=== PATIENT | female | born 1955 | race Caucasian/White ===

== ENCOUNTER 2018-05-14 05:45 | Inpatient (IN) ==
--- NOTE | 2017-12-13 10:06 | Anesthesiology Consultation ---
Date of Service December 13, 2017 Assessment & Plan (1) Encounter for pre-operative examination: Plan: - Check BSG AM DOS. - Cardio= 12/18/17= "acceptable risk for planned surgery. Recommend she hold the Eliquis for at least 3 days preoperatively." Chart Review Chart Review: Optimized for Surgery Teaching & Discussion Pre-Anesthesia Teaching/Discussion Notes: Instructed NPO after midnight before surgery,except medications with 15 cc of water. Medication instructions provided according to the PAT guidelines. History Surgery Operation Date: 01/01/18 07:30 Proposed Procedures p L4-L5, L5-S1 Removal & Replace Implants; L2-L3, L3-L4 Curvature Correction and Fusion; Removal Bone Stimulator - Graham Whalen, Height/Weight Height: 5 ft 2 in Weight: 89.5 kg Allergies Allergy/AdvReac Type Severity Reaction Status Date / Time Sulfa (Sulfonamide Allergy Unknown UNKNOWN Verified 12/11/17 09:17 Antibiotics) gabapentin AdvReac Intermediate GI Verified 12/11/17 09:17 SYMPTOMS, Disoriented valdecoxib AdvReac Intermediate RASH Verified 12/11/17 09:17 venlafaxine AdvReac Unknown GI UPSET Verified 12/11/17 09:17 Medications Home Medications Medication Instructions Recorded Confirmed Last Taken apixaban [Eliquis] 5 mg PO BID 12/11/17 12/11/17 Unknown calcium carbonate [Calcium 600] 1,200 mg PO DAILY 12/11/17 12/11/17 Unknown calcium polycarbophil [Fiber-Tabs] 1,250 mg PO DAILY 12/11/17 12/11/17 Unknown cetirizine [Zyrtec] 10 mg PO DAILY 12/11/17 12/11/17 Unknown cholecalciferol (vitamin D3) 1,000 unit PO DAILY 12/11/17 12/11/17 Unknown [Vitamin D3] desvenlafaxine succinate [Pristiq] 100 mg PO QAM 12/11/17 12/11/17 Unknown flecainide 50 mg PO Q12H 12/11/17 12/11/17 Unknown furosemide [Lasix] 20 mg PO DAILY PRN 12/11/17 12/11/17 Unknown lisinopril 10 mg PO DAILY 12/11/17 12/11/17 Unknown lorazepam [Ativan] 1 mg PO BID PRN 12/11/17 12/11/17 Unknown metformin 500 mg PO BID 12/11/17 12/11/17 Unknown metoprolol succinate [Toprol XL] 50 mg PO DAILY 12/11/17 12/11/17 Unknown naloxegol [Movantik] 25 mg PO QAM 12/11/17 12/11/17 Unknown pantoprazole [Protonix] 40 mg PO DAILY PRN 12/11/17 12/11/17 Unknown polyethylene glycol 3350 [Miralax] 1 dose PO DAILY PRN 12/11/17 12/11/17 Unknown potassium chloride 20 meq PO DAILY PRN 12/11/17 12/11/17 Unknown ropinirole [Requip] 1 mg PO HS 12/11/17 12/11/17 Unknown tizanidine 4 mg PO TID PRN 12/11/17 12/11/17 Unknown Past Medical History Medical History Anxiety Atrial fibrillation PAROXYSMAL Chronic back pain Constipation Degenerative disc disease Depression Diabetes mellitus, type 2 NIDDM GERD (gastroesophageal reflux disease) CONTROLLED Hyperlipidemia Hypertension Obesity Osteoarthritis Poor historian Post laminectomy syndrome Presence of intrathecal pump DILAUDID RLS (restless legs syndrome) Past Surgical History Surgical History Fusion of spine LUMBAR FUSION CERVICAL FUSION H/O right knee surgery History of bilateral tubal ligation History of carpal tunnel release of both wrists History of laminectomy Hx of cholecystectomy S/P foot surgery, right S/P insertion of intrathecal pump 08/17/14= LMA #4 AT [facility] Anesthesia Complications Comment: Patient denies personal or family history of issues with anesthesia. Social History Smoking Status: Former smoker Smoking End Date: QUIT 2004 Hx Alcohol Use: Yes Alcohol type: beer alcohol intake frequency: holidays/special occasions only Hx Substance Use: No Exercise / Class Metabolic Activity III < 4 Walking/Shop/Light housework Review of Systems Patient reports LBP with B/L LE radiculopathy/neuropathy. Patient denies chest pain, shortness of breath, dyspnea on exertion, wheezing, palpitations. Physical Exam Vital Signs VITALS BP 104/70 P 81 TEMP 97.8 RESP 16 SP02 97%RA Full neck and c-spine range of motion. Short thick neck. Full TMJ range of motion. TMD 3 finger breaths Mallampati Score 2 Dentition: multiple chipped "all over" Lungs: clear throughout to auscultation Cardiac: regular rate and rhythm, no murmurs noted Spine: normal Carotid arteries: negative bruit Extremities: no edema Testing Laboratory Results 12/13/17 10:17 12/13/17 10:17 Blood Type O Positive 12/13/17 10:17 Antibody Screen NEGATIVE 12/13/17 10:17 PT 10.0 Seconds (9.0-12.0) 12/13/17 10:17 INR 1.0 (0.9-1.1) 12/13/17 10:17 APTT 27.0 Seconds (21.0-31.0) 12/13/17 10:17 Hemoglobin A1c 7.5 % (4.5-5.6) H 12/13/17 10:17 Electrocardiogram Date: 08/18/17 Findings: + SB @ (48) Chest X-Ray Date: 12/13/17 Findings: + NAD Intrathecal catheter is partially imaged as well. Echocardiogram Date: 12/03/17 LVEF 65-70%. Mild cLVH. Mild LAD/RAD. RVSP 42.0 mmhg.
--- NOTE | 2017-12-13 10:15 | PAT Medication Instructions ---
Medication Instructions Date of Service December 13, 2017 Home Medications apixaban [Eliquis] 5 mg PO BID calcium carbonate [Calcium 600] 1,200 mg PO DAILY calcium polycarbophil [Fiber-Tabs] cetirizine [Zyrtec] 10 mg PO DAILY cholecalciferol (vitamin D3) 1,000 unit PO DAILY desvenlafaxine succinate [Pristiq] 100 mg PO QAM flecainide 50 mg PO Q12H furosemide [Lasix] 20 mg PO DAILY PRN lisinopril 10 mg PO QAM lorazepam [Ativan] 1 mg PO BID PRN metformin 500 mg PO BID metoprolol succinate [Toprol XL] 50 mg PO DAILY naloxegol [Movantik] 25 mg PO QAM pantoprazole [Protonix 40 mg PO DAILY PRN polyethylene glycol 3350 [Miralax] 1 dose PO DAILY PRN potassium chloride 20 meq PO DAILY PRN ropinirole [Requip] 1 mg PO HS tizanidine 4 mg PO TID PRN Check with MD/Surgeon-instructions apixaban [Eliquis] 5 mg PO BID Hold 24 hours prior to surgery ropinirole [Requip] 1 mg PO HS Hold the morning of surgery cetirizine [Zyrtec] 10 mg PO DAILY furosemide [Lasix] 20 mg PO DAILY PRN lisinopril 10 mg PO QAM metformin 500 mg PO BID naloxegol [Movantik] 25 mg PO QAM polyethylene glycol 3350 [Miralax] 1 dose PO DAILY PRN potassium chloride 20 meq PO DAILY PRN tizanidine 4 mg PO TID PRN Take morning of surgery Take the following medication the morning of surgery with a sip of water, OTHERWISE NOTHING TO EAT OR DRINK AFTER MIDNIGHT: desvenlafaxine succinate [Pristiq] 100 mg PO QAM flecainide 50 mg PO Q12H lorazepam [Ativan] 1 mg PO BID PRN (if needed) metoprolol succinate [Toprol XL] 50 mg PO DAILY pantoprazole [Protonix 40 mg PO DAILY PRN (if needed) Take evening before surgery calcium carbonate [Calcium 600] 1,200 mg PO DAILY calcium polycarbophil [Fiber-Tabs] cholecalciferol (vitamin D3) 1,000 unit PO DAILY flecainide 50 mg PO Q12H lorazepam [Ativan] 1 mg PO BID PRN (if needed) metformin 500 mg PO BID pantoprazole [Protonix 40 mg PO DAILY PRN (if needed) polyethylene glycol 3350 [Miralax] 1 dose PO DAILY PRN (if needed) potassium chloride 20 meq PO DAILY PRN (if needed) tizanidine 4 mg PO TID PRN (if needed) Other Notes If you have any questions please call us at [phone] or [phone] or [phone] or [phone]
--- NOTE | 2017-12-13 10:35 | XRay Report ---
XR chest Pre-admission PA/Lat CLINICAL HISTORY: Preoperative evaluation. COMPARISON STUDY: No previous studies for comparison. FINDINGS: Anterior cervical spine fusion is partially imaged. Intrathecal catheter is partially image d as well. Lung volumes are normal. No pneumothorax or pleural effusion is noted. Lungs are clear. Ca rdiac size is normal. Mediastinal contours are normal. IMPRESSION: No acute cardiopulmonary findings. Electronically signed by: Rogerio Toledo M.D. 12/13/2017 10:34 AM
[2017-12-13 11:18] LABS: Basophils # (auto) 0.01 K/uL (0-0.2); Basophils % (auto) 0.2 %; Eosinophils # (auto) 0.25 K/uL (0-0.5); Eosinophils % (auto) 4.9 %; Hematocrit (blood only) 43.5 % (37-47); Hemoglobin 14.4 g/dL (12.0-16.0); Immature Granulocytes # (auto) 0.01 K/uL (0.00-0.02); Immature Granulocytes % (auto) 0.2 %; Lymphocytes # (auto) 1.86 K/uL (1.2-3.4); Lymphocytes % (auto) 36.1 %; Mean Corpuscular Hgb Conc 33.1 g/dL (32-36); Mean Corpuscular Volume 92.2 fL (80-100); Monocytes # (auto) 0.34 K/uL (0.11-0.59); Monocytes % (auto) 6.6 %; Neutrophils # (auto) 2.68 K/uL (1.4-6.5); Platelet Count 219 K/uL (130-400); RDW Standard Deviation 47.2 fL (36.4-46.3); Red Blood Count 4.72 M/uL (4.2-5.4); White Blood Count 5.15 K/uL (4.8-10.8)
[2017-12-13 11:26] LABS: BUN Creatinine Ratio 17.9 (10-20); Creatinine Clr Calc Pharmacy 90.5 ml/min; Est GFR (African American) 109.2; Est GFR (Non-African American) 94.2; Potassium 4.6 mmol/L (3.5-5.1)
[2017-12-13 12:05] LABS: Estimated Average Glucose 169 mg/dl
--- NOTE | 2018-05-11 20:17 | History and Physical Report ---
DATE OF ADMISSION: 05/14/2018 CHIEF COMPLAINT: Back pain, lower extremity difficulty, paresthesias, and inability to ambulate and get upright. She is being scheduled for elective lumbar spinal surgery. PAST MEDICAL HISTORY: Usual childhood diseases, scarlet fever, hypertension, diabetes arrhythmias. PAST SURGICAL HISTORY: Includes old prior surgery in the lumbar spine, carpal tunnel surgery, cholecystectomy, C-spine surgery. ALLERGIES: BEXTRA, NEURONTIN. FAMILY HISTORY: Heart disease, diabetes. SOCIAL HISTORY: She is , rarely drinks. Three grown children. Little activity secondary to pain. REVIEW OF SYSTEMS: Positive for fatigue and headaches, sinus issues. Admits to occasional palpitations. No asthma, wheezing. No nausea, vomiting, urgency, frequency. No dysuria, no bowel and bladder incontinence. Her major complaint is of lower extremity, difficulty, paresthesias, numbness and tingling, inability to ambulate and come upright. MEDICATIONS: Metformin, lorazepam, furosemide, vitamin D, tramadol, Vasotec. OBJECTIVE: GENERAL: She is alert, oriented. She is 5 feet 2 inches, 213 pounds, in distress. VITAL SIGNS: Blood pressure 130/80, pulse 80, respiration 16. HEENT: Essentially normal. CARDIAC: Normal S1, S2, no S3. LUNGS: Clear to auscultation. No rales, rhonchi, or wheezing. ABDOMEN: Soft, nontender, bowel sounds present. EXTREMITIES: Intact. She has weakness of dorsiflexion, plantarflexion, blunted reflexes, and difficulty coming upright. IMAGES: Images demonstrated a fairly complex spinal scoliosis and deformity of the spine. PLAN: Includes removal and replace implants, lumbar spine L4-5, L5-S1; correction of her curvature and fusion, L2-3, L3-4, and removal of bone stimulator.
[~2018-05-14 05:45] MED LIST: CEFAZOLIN 2000MG 2,000 MG/15 ML SYR IV SCH; LACTATED RINGER'S 1,000 ML IV SCH; LR 15ML/HR IV SCH; LR 500ML BOLUS, THEN 15ML/HR IV SCH; SODIUM CHLORIDE 0.9% 1,000 ML IV SCH; SODIUM CHLORIDE 0.9% 1000ML IV SCH
[2018-05-14] MEDS ORDERED: SODIUM CHLORIDE 0.9% 1,000 ML IV SCH (06:00)
[2018-05-14] MEDS ORDERED: LR 15ML/HR IV SCH ×2 (06:00)
[2018-05-14] MEDS ORDERED: CEFAZOLIN 2000MG 2,000 MG/15 ML SYR IV SCH (06:00)
[2018-05-14] MEDS ORDERED: THROMBIN FOR SOLN 20000 UNIT KIT ONE (06:48)
[2018-05-14] MEDS ORDERED: GELATIN SPONGE SZ 100 ONE ×2 (06:48→09:30)
[2018-05-14] MEDS ORDERED: BACITRACIN INJ 50,000 UNIT VIAL ONE (06:48)
[2018-05-14] MEDS ORDERED: VANCOMYCIN HCL 1000MG/20ML VIAL ONE (06:48)
[2018-05-14] MEDS ORDERED: ePHEDrine sulfate 50 MG/ML AMP IV PRN (06:50)
[2018-05-14] MEDS ORDERED: HYDROmorphone INJ 2 MG/ML SYR/VIAL IV PRN (06:50)
[2018-05-14] MEDS ORDERED: ONDANSETRON INJ 2 MG/ML 2 ML VIAL IV PRN ×2 (06:50→11:16)
[2018-05-14] MEDS ORDERED: fentaNYL citrate 100 MCG/2 ML VIAL IV PRN (06:50)
[2018-05-14] MEDS ORDERED: ATROPINE SULFATE 0.1 MG/ML 10ML SYR IV PRN (06:50)
[2018-05-14] MEDS ORDERED: BUPIVACAINE/EPINEPHRINE 0.5% MPF 1:200,000 30 ML VIAL ONE (06:51)
[2018-05-14] MEDS ORDERED: fentaNYL citrate 100 MCG/2 ML VIAL ONE (07:08)
[2018-05-14] MEDS ORDERED: MIDAZOLAM HCL 1 MG/ML 2ML VIAL ONE (07:08)
--- NOTE | 2018-05-14 07:17 | History & Physical Bridge Note ---
Date of Service May 14, 2018 History & Physical Bridge Note I have examined the patient, reviewed the History & Physical and in the interval since the performance of the History & Physical I have noted the following changes of clinical significance: no changes noted
[2018-05-14] MEDS ORDERED: ePHEDrine sulfate 50 MG/ML SYR ONE (08:16)
[2018-05-14] MEDS ORDERED: DEXAMETHASONE SOD INJ 4 MG/ML VIAL ONE (08:16)
[2018-05-14] MEDS ORDERED: LARYING-O-JET KIT (LTA) ONE (08:16)
[2018-05-14] MEDS ORDERED: ONDANSETRON INJ 2 MG/ML 2 ML VIAL ONE (08:16)
[2018-05-14] MEDS ORDERED: ROCURONIUM BROMIDE 10 MG/ML 5 ML VIAL ONE (08:16)
[2018-05-14] MEDS ORDERED: HYDROmorphone INJ 2 MG/ML SYR/VIAL ONE (08:16)
[2018-05-14] MEDS ORDERED: LIDOCAINE HCL 2% 2 ML VIAL/AMP(20MG/ML) INFIL ONE (08:16)
[2018-05-14] MEDS ORDERED: GLYCOPYRROLATE 0.2 MG/ML VIAL ONE (08:16)
[2018-05-14] MEDS ORDERED: PROPOFOL IV EMULSION 10 MG/ML 20 ML VIAL IV ONE (08:16)
[2018-05-14] MEDS ORDERED: NEOSTIGMINE METHYLSULFATE 5 MG/5 ML SYR ONE (08:16)
[2018-05-14] MEDS ORDERED: FLOSEAL HEMOSTATIC MATRIX 10ML TOP ONE (08:55)
--- NOTE | 2018-05-14 10:15 | Post Operative Brief Note ---
Immediate Post Op Note v1 Date of Surgery May 14, 2018 Pre & Post Diagnosis Operation Date: 05/14/18 07:30 Pre-Op Diagnosis: Scoliosis, Spinal Stenosis, Failed Implants Post-Op Diagnosis: Scoliosis, Spinal Stenosis, Failed Implants Procedure Operation Date: 05/14/18 07:30 Actual Procedures p Laminectomy L2-L4, Removal of Bone Stimulator, Partial Removal of Implants( Not Applicable) - Graham Whalen DO Surgeon Graham Whalen DO Food Service Attendant breanna Estimated Blood Loss 300 Findings Consistent with Post-Op Diagnosis Drains Lawson Catheter and Hemovac Drain
--- NOTE | 2018-05-14 11:03 | Anesthesiology Progress Note ---
Date of Service May 14, 2018 Anesthesia Post Procedure Vital Signs Vital Signs: Temp Pulse Pulse Resp BP BP Pulse Ox 05/14/18 10:55 97.0 F L 43 L 15 142/82 H 100 05/14/18 10:45 46 L 14 146/82 H 100 05/14/18 10:35 45 L 14 154/79 H 100 05/14/18 10:25 45 L 15 146/79 H 99 05/14/18 10:18 97.0 F L 47 L 14 171/80 H 99 05/14/18 06:24 97.7 F 48 L 18 145/88 H 95 Pain Intensity Back: Pain Intensity: 3 Notes Mental Status: alert / awake / arousable and participated in evaluation Patient Amnestic to Procedure: Yes Nausea / Vomiting: adequately controlled Pain: adequately controlled Airway Patency, RR, SpO2: stable & adequate BP & HR: stable & adequate Hydration State: stable & adequate Anesthetic Complications: no major complications apparent and Pt Satisfied with anesthetic care
[2018-05-14] MEDS ORDERED: PANTOprazole 40 MG TAB PO PRN (11:16)
[2018-05-14] MEDS ORDERED: POLYETHYLENE (MIRALAX) 17 GM PACK PO PRN (11:16)
[2018-05-14] MEDS ORDERED: MAGNESIUM HYDROXIDE SUSP 30 ML UDC PO PRN (11:16)
[2018-05-14] MEDS ORDERED: FUROSEMIDE 20 MG TAB PO PRN (11:16)
[2018-05-14] MEDS ORDERED: HYDROmorphone INJ 1 MG/ML SYRINGE IV PRN (11:16)
[2018-05-14] MEDS ORDERED: CETIRIZINE HCL 10 MG TABLET PO PRN (11:30)
[2018-05-14] MEDS: HYDROmorphone INJ 1 MG/ML SYRINGE IV PRN ×2 (11:30→16:23)
[2018-05-14] MEDS ORDERED: POTASSIUM CHLORIDE 20 MEQ TABCR PO PRN (11:30)
[2018-05-14] MEDS ORDERED: TIZANIDINE HCL 4 MG TABLET PO PRN (11:45)
[2018-05-14] MEDS: SODIUM CHLORIDE 0.9% 1000ML 1,000 ML IV SCH ×2 (12:11→22:26)
[2018-05-14] MEDS: FLECAINIDE ACETATE 100 MG TABLET PO SCH ×2 (12:11→21:22)
[2018-05-14] MEDS: OXYCODONE HCL IR 5 MG TAB (IMMEDIATE RELEASE) PO PRN ×2 (12:14→21:25)
[2018-05-14] MEDS: ACETAMINOPHEN 1,000 MG/100 ML VIAL IV SCH ×2 (13:16→22:27)
[2018-05-14 13:25] LABS: Albumin Level 3.6 gm/dl (3.4-5.0); Bilirubin Direct 0.1 mg/dl (0-0.2); Bilirubin,Total 0.4 mg/dl (0.2-1); Total Protein 6.5 gm/dl (6.4-8.2)
[2018-05-14] MEDS: CEFAZOLIN 2000MG 2,000 MG/15 ML SYR IV SCH ×2 (14:41→22:17)
[2018-05-14] MEDS: ROPINIROLE HCL 1 MG TABLET PO SCH ×2 (16:23→22:24)
[2018-05-14] MEDS: METFORMIN HCL 500 MG TAB PO SCH (17:35)
[2018-05-14] MEDS ORDERED: ROPINIROLE HCL 1 MG TABLET PO SCH (21:00)
[2018-05-14] MEDS: APIXABAN 5 MG TABLET PO SCH (21:21)
[2018-05-14] MEDS: AMITRIPTYLINE HCL 10 MG TAB PO SCH (21:21)
[2018-05-14] MEDS: DOCUSATE SODIUM 100 MG CAP PO SCH (21:21)
--- NOTE | 2018-05-14 21:29 | Operative Report ---
REVISED REPORT DATE OF OPERATION: 05/14/2018 PREOPERATIVE DIAGNOSES: 1. Degenerative scoliosis of the spine. 2. Spinal stenosis. 3. Instability. POSTOPERATIVE DIAGNOSES: 1. Spinal stenosis, lumbar spine. 2. No instability. PROCEDURES: 1. Posterior lumbar decompression L2, L3, L4, a 3-level laminectomy, foraminotomy, partial facetectomy. 2. We also removed the prior spinal implant bone stimulator and pain pump. SURGEON: Graham Whalen DO GENERAL SCRAP WORKER: Jamie Gasca PA-C. COMPLICATIONS: None. DESCRIPTION OF PROCEDURE: The patient was taken to the operating room and general intubated anesthetic provided to the patient, placed prone, prepped and draped sterile. Made a skin incision and fascial incision. We dissected from L2 down to the sacrum, dissecting the soft tissue in the same plane. We first worked on the old implants. We were unsuccessful in getting out the old implants. I then evaluated the spine, realized that she is relatively stable. I felt no gross instability. My reasoning was that she needed no more implants placed and that would not help her. Her spine was quite rigid and stable. We decompressed the stenosed areas, L2, L3, and L4. I was very pleased with that decompression. We took out the old spinal implant, which was a pain pump, nerve stimulator, assortment of wires. We then irrigated and debrided and closed in [id number] fashion, fascia. Fascia closed with 1 Vicryl suture, 2-0 subcuticular layer, 3-0 nylon skin, sterile dressings applied. The patient returned to PACU stable. No apparent intraoperative complications. I attest to the content of the Intraoperative Record and any orders documented therein. Any exceptions are noted below. MTDD
[2018-05-14] MEDS: LORazepam 1 MG TAB PO PRN (21:52)
[2018-05-15] MEDS: OXYCODONE HCL IR 5 MG TAB (IMMEDIATE RELEASE) PO PRN ×5 (02:47→20:39)
[2018-05-15] MEDS: ACETAMINOPHEN 1,000 MG/100 ML VIAL IV SCH ×3 (06:20→22:26)
[2018-05-15] MEDS: CEFAZOLIN 2000MG 2,000 MG/15 ML SYR IV SCH (06:20)
--- NOTE | 2018-05-15 08:20 | Anesthesiology Progress Note ---
Date of Service May 15, 2018 Anesthesia Post Procedure Vital Signs Vital Signs: Temp Pulse Pulse Resp BP Pulse Ox 05/15/18 07:12 36.5 C 51 L 18 108/65 92 05/15/18 03:15 36.4 C L 52 L 16 114/70 93 05/14/18 23:04 36.5 C 51 L 16 101/60 91 05/14/18 19:00 36.6 C 50 L 20 93 05/14/18 15:15 36.7 C 50 L 18 118/77 99 05/14/18 13:57 49 L 18 115/75 94 05/14/18 12:52 50 L 18 114/75 97 05/14/18 12:04 36.3 C L 48 L 16 101/69 94 05/14/18 11:34 36.3 C L 46 L 18 108/69 92 05/14/18 11:00 36.3 C L 45 L 16 125/76 91 05/14/18 10:55 36.1 C L 43 L 15 142/82 H 100 05/14/18 10:45 46 L 14 146/82 H 100 05/14/18 10:35 45 L 14 154/79 H 100 05/14/18 10:25 45 L 15 146/79 H 99 05/14/18 10:18 36.1 C L 47 L 14 171/80 H 99 Pain Intensity Back: Pain Intensity: 7 Notes Mental Status: alert / awake / arousable and participated in evaluation Nausea / Vomiting: adequately controlled Pain: adequately controlled Airway Patency, RR, SpO2: stable & adequate BP & HR: stable & adequate Hydration State: stable & adequate Anesthetic Complications: no major complications apparent
[2018-05-15] MEDS: METFORMIN HCL 500 MG TAB PO SCH ×2 (08:28→18:05)
[2018-05-15] MEDS: APIXABAN 5 MG TABLET PO SCH ×2 (08:28→20:41)
[2018-05-15] MEDS: DOCUSATE SODIUM 100 MG CAP PO SCH ×2 (08:28→20:42)
[2018-05-15] MEDS: FLECAINIDE ACETATE 100 MG TABLET PO SCH ×2 (08:29→20:40)
[2018-05-15] MEDS: CALCIUM POLYCARBOPHIL 1 TAB PO SCH (08:31)
[2018-05-15] MEDS: ROPINIROLE HCL 1 MG TABLET PO SCH ×2 (08:32→20:42)
[2018-05-15] MEDS: LISINOPRIL 10 MG TAB PO SCH (08:33)
[2018-05-15] MEDS: FLUTICASONE PROPIONATE NA SPR 16 GM BTL SCH (08:33)
[2018-05-15] MEDS: METOPROLOL SUCC 50MG EXT REL TAB PO SCH (08:33)
--- NOTE | 2018-05-15 14:25 | Hospitalist Consultation ---
Date of Consultation May 15, 2018 Assessment & Plan (1) Degenerative disc disease, cervical: (2) Chronic lumbar pain: (3) Obesity: (4) RLS (restless legs syndrome): (5) Atrial fibrillation: (6) Hyperlipidemia: (7) Hypertension: (8) Anxiety: (9) Depression: (10) Diabetes mellitus, type 2: (11) GERD (gastroesophageal reflux disease): History of Present Illness Reason for Consultation: Medical manaement Requesting Physician: Dr. Ross Attending Physician: Graham Whalen DO History of Present Illness 62-year-old white female with a significant past medical history of chronic lumbar pain, restless leg syndrome, A. fib, dyslipidemia hypertension, anxiety, depression type II diabetic GERD, was admitted to orthopedic service because of lower back pain. Patient have his procedure done in May 14, 2018, per report in the preop diagnosis is spinal stenosis., POSTOPERATIVE DIAGNOSES: 1. Spinal stenosis, lumbar spine. PROCEDURES: 1. Posterior lumbar decompression L3, L4, L5, a 3- level laminectomy, foraminotomy, partial facetectomy, removed the prior spinal implant bone stimulator and pain pump. When I see patient she reported doing good, only mild achy pain, has been sitting up to the chair, no other complaint, Allergies Allergy/AdvReac Type Severity Reaction Status Date / Time Sulfa (Sulfonamide Allergy Unknown UNKNOWN Verified 05/10/18 08:27 Antibiotics) gabapentin AdvReac Intermediate GI Verified 05/10/18 08:27 SYMPTOMS, Disoriented valdecoxib AdvReac Intermediate RASH Verified 05/10/18 08:27 venlafaxine AdvReac Unknown GI UPSET Verified 05/10/18 08:27 Home Medications Home Medications Medication Instructions Recorded Confirmed Type apixaban [Eliquis] 5 mg PO BID 12/11/17 05/14/18 History calcium polycarbophil [Fiber-Tabs] 1,250 mg PO DAILY 12/11/17 05/14/18 History cetirizine [Zyrtec] 10 mg PO DAILY PRN 12/11/17 05/14/18 History desvenlafaxine succinate [Pristiq] 100 mg PO QAM 12/11/17 05/14/18 History flecainide 50 mg PO Q12H 12/11/17 05/10/18 History furosemide [Lasix] 20 mg PO DAILY PRN 12/11/17 05/14/18 History lisinopril 10 mg PO QAM 12/11/17 05/14/18 History lorazepam [Ativan] 1 mg PO BID PRN 12/11/17 05/14/18 History metformin 500 mg PO BID 12/11/17 05/10/18 History metoprolol succinate [Toprol XL] 50 mg PO QAM 12/11/17 05/14/18 History pantoprazole [Protonix] 40 mg PO DAILY PRN 12/11/17 05/14/18 History polyethylene glycol 3350 [Miralax] 1 dose PO DAILY PRN 12/11/17 05/14/18 History potassium chloride 20 meq PO DAILY PRN 12/11/17 05/14/18 History tizanidine 4 mg PO TID PRN 12/11/17 05/14/18 History tramadol 50 mg tablet 100 mg PO Q6H PRN tab 12/27/17 05/14/18 History amitriptyline 10 mg PO HS 03/28/18 05/14/18 History Dilaudid Pump 0.9 mg INTRATHECAL DAILY 05/10/18 History fluticasone 2 spray INTRANASAL QAM 05/10/18 05/14/18 History rk-qa-upbhzzt-biotin-vit D3-FA 3 tab PO HS 05/10/18 05/14/18 History [Biotin Plus-Calcium and Vit D3] ropinirole 2 mg PO HS 05/10/18 05/14/18 History hydrocodone-acetaminophen [Watson] 1 tab PO Q6H #40 tab 05/15/18 Rx Patient History Medical History Anxiety Atrial fibrillation PAROXYSMAL Chronic back pain Constipation Degenerative disc disease Depression Diabetes mellitus, type 2 NIDDM GERD (gastroesophageal reflux disease) CONTROLLED Hyperlipidemia Hypertension Obesity Osteoarthritis Poor historian Post laminectomy syndrome Presence of intrathecal pump DILAUDID RLS (restless legs syndrome) Surgical History Fusion of spine LUMBAR FUSION CERVICAL FUSION H/O right knee surgery History of bilateral tubal ligation History of carpal tunnel release of both wrists History of laminectomy Hx of cholecystectomy S/P foot surgery, right S/P insertion of intrathecal pump 08/17/14= LMA #4 AT [facility] Social History marital status: Unknown Current Living Situation: Alone current occupational status: retired Other Information That Helps Us Care for You: No Feels Safe at Home: Yes Safety Concerns: Feels Safe At This Time Smoking Status: Former smoker Tobacco Type: cigarettes Do You Dip or Chew Tobacco: No Smoking End Date: QUIT 14 YEARS AGO Second Hand Exposure: No Tobacco Cessation Education Requested by Patient: No Hx Alcohol Use: Yes (occassionally) Alcohol type: beer Alcohol Intake Frequency : holidays/special occasions only Hx Substance Use: No Beliefs That Will Affect Care: None Communication Ability: Effective Review of Systems Review of Systems Constitutional: mild weakness, or fatigue Respiratory: no cough, sputum, wheezing, or dyspnea on exertion Cardiac: No chest pain, No orthopnea, No PND, No claudication, No palpitations , Abdomen: No pain, No nausea, No vomiting, No diarrhea, No constipation, No GI bleeding Musculoskeletal: mild achy LBP, no other joint pain, No muscle pain, No swelling, No calf pain, No problem reported : No dysuria, No urinary frequency, No incontinence, No hematuria Neurologic: No paralysis, No weakness, No numbness/tingling, No vertigo, No balance problems Psychiatric: No depression symptoms, No anhedonism, No anxiety, No insomnia, No substance abuse Heme: No abnormal bleeding/bruising, No clotting problems, No swollen lymph nodes, No night sweats Skin: No rash, No itch, No new/changing skin lesions, No color change, No bleeding Physical Exam 2 Vital Signs (Past 24 Hours): Last Vital Signs Temp 36.6 C 05/15/18 11:13 Pulse 54 L 05/15/18 11:13 Resp 18 05/15/18 11:13 BP 108/65 05/15/18 11:13 Pulse Ox 93 05/15/18 11:13 Physical Exam: General Appearance: WD/WN, no apparent distress, pleasant, morbid obesity, Eyes: normal inspection, PERRL, EOMI, sclerae normal ENT: normal ENT inspection, hearing grossly normal, pharynx normal Neck: supple, no adenopathy, thyroid normal, no JVD, no carotid bruits, trachea midline Respiratory/Chest: chest non-tender, normal breath sounds, no respiratory distress, no accessory muscle use, breath sounds, rales, wheezing Cardiovascular: regular rate, rhythm, no JVD, no murmur Abdomen: normal bowel sounds, non tender, soft, no organomegaly, Extremities: No obvious edema, normal range of motion, non-tender, normal inspection, joint has no limited range of motion, capillary refill is normal, no cyanosis clubbing Neurologic/Psychiatric: sound technician II-XII nml as tested, no motor/sensory deficits, alert, normal mood/affect, oriented x 3 Skin: normal color, warm/dry, no rash Lymphatic: no adenopathy Results & Data Laboratory Results Laboratory Results - last 24 hr 05/14/18 05/14/18 05/15/18 17:16 20:29 08:30 POC Glucose 229 H 192 H 182 H 05/15/18 12:13 POC Glucose 195 H
[2018-05-15] MEDS: AMITRIPTYLINE HCL 10 MG TAB PO SCH (20:40)
[2018-05-16] MEDS ORDERED: SODIUM CHLORIDE 0.9% 1000ML 1,000 ML IV ONE (00:37)
[2018-05-16] MEDS: ACETAMINOPHEN 1,000 MG/100 ML VIAL IV SCH ×3 (05:41→22:10)
[2018-05-16] MEDS: OXYCODONE HCL IR 5 MG TAB (IMMEDIATE RELEASE) PO PRN ×4 (05:46→21:30)
[2018-05-16] MEDS ORDERED: BISACODYL 5 MG TABEC PO PRN (06:00)
[2018-05-16 06:45] LABS: Basophils # (auto) 0.01 K/uL (0-0.2); Basophils % (auto) 0.1 %; Eosinophils # (auto) 0.15 K/uL (0-0.5); Eosinophils % (auto) 2.1 %; Hematocrit (blood only) 29.7 % (37-47); Hemoglobin 9.9 g/dL (12.0-16.0); Immature Granulocytes # (auto) 0.02 K/uL (0.00-0.02); Immature Granulocytes % (auto) 0.3 %; Lymphocytes % (auto) 22.6 %; Mean Corpuscular Hgb Conc 33.3 g/dL (32-36); Mean Corpuscular Volume 97.4 fL (80-100); Monocytes # (auto) 0.65 K/uL (0.11-0.59); Monocytes % (auto) 9.2 %; Neutrophils # (auto) 4.66 K/uL (1.4-6.5); Neutrophils % (auto) 65.7 %; Platelet Count 154 K/uL (130-400); RDW Coefficient of Variation 13.4 % (11.5-14.5); RDW Standard Deviation 47.6 fL (36.4-46.3); Red Blood Count 3.05 M/uL (4.2-5.4); White Blood Count 7.09 K/uL (4.8-10.8)
[2018-05-16 06:51] LABS: INR 1.1 (0.9-1.1); Prothrombin Time 10.8 Seconds (9.0-12.0)
[2018-05-16 07:09] LABS: BUN Creatinine Ratio 23.4 (10-20); Calcium 7.7 mg/dl (8.5-10.1); Creatinine Clr Calc Pharmacy 101.5 ml/min; Est GFR (African American) 112.6; Est GFR (Non-African American) 97.2; Magnesium 1.6 mg/dl (1.8-2.4); Potassium 3.7 mmol/L (3.5-5.1)
[2018-05-16] MEDS: DOCUSATE SODIUM 100 MG CAP PO SCH ×2 (07:56→22:06)
[2018-05-16] MEDS: APIXABAN 5 MG TABLET PO SCH ×2 (07:56→22:07)
[2018-05-16] MEDS: CALCIUM POLYCARBOPHIL 1 TAB PO SCH (07:57)
[2018-05-16] MEDS: LISINOPRIL 10 MG TAB PO SCH (07:57)
[2018-05-16] MEDS: FLUTICASONE PROPIONATE NA SPR 16 GM BTL SCH (07:58)
[2018-05-16] MEDS: FLECAINIDE ACETATE 100 MG TABLET PO SCH ×2 (07:58→22:08)
[2018-05-16] MEDS: METFORMIN HCL 500 MG TAB PO SCH ×2 (07:59→15:56)
[2018-05-16] MEDS: METOPROLOL SUCC 50MG EXT REL TAB PO SCH ×2 (08:01→09:42)
[2018-05-16] MEDS ORDERED: MAGNESIUM SULFATE / D5W 1 GM/100 ML BAG IV ONE (08:30)
[2018-05-16] MEDS ORDERED: COUGH DROP (SUGAR FREE) LOZ 24 LOZ/1 BOX BUCCAL ONE (09:03)
[2018-05-16] MEDS: MAGNESIUM OXIDE 400 MG TAB PO SCH ×2 (09:41→22:07)
[2018-05-16] MEDS ORDERED: NURSING DECISION MEDICATION ONE (09:54)
[2018-05-16] MEDS ORDERED: COUGH DROP (SUGAR FREE) LOZ 24 LOZ/1 BOX BUCCAL PRN (10:01)
--- NOTE | 2018-05-16 11:20 | Discharge Summary ---
Ene is postop day #2 lumbar spine laminectomy, removal of pain pump. She is doing well, still has some lingering pain, some quadriceps pain, some surgical, some not. She has had an uneventful course. She is taking p.o. She is ambulatory. All vital signs stable. She is discharged home later today in improved stable condition. Prescription for [place] on her chart and a followup in 10-12 days.
[2018-05-16] MEDS: LORazepam 1 MG TAB PO PRN ×2 (11:26→22:17)
--- NOTE | 2018-05-16 15:34 | Hospitalist Progress Note ---
Date of Service May 16, 2018 Assessment & Plan (1) Degenerative disc disease, cervical: (2) Chronic lumbar pain: (3) Obesity: (4) RLS (restless legs syndrome): (5) Atrial fibrillation: (6) Hyperlipidemia: (7) Hypertension: (8) Anxiety: (9) Depression: (10) Diabetes mellitus, type 2: (11) GERD (gastroesophageal reflux disease): 62-year-old white female with a significant past medical history of chronic lumbar pain, restless leg syndrome, A. fib, dyslipidemia hypertension, anxiety, depression type II diabetic GERD, was admitted to orthopedic service because of lower back pain. Low back pain S/P procedure, this will be management by the primary team, others such as pain control PT OT DVT prophylaxis and discharge plan will be per primary team A. fib with rapid ventricular response, heart rate highest was up to 131, blood pressure was borderline low in 90s, unable to give metoprolol, after observation was able to give Metoprolol Patient's heart rate and blood pressure has been fluctuating a lot, I told RN to have close monitoring, and hold discharge if orthopedic surgeon agree restless leg syndrome, dyslipidemia hypertension, anxiety, depression , GERD, stable will continue current medication, type II diabetic: Continue home medication plus insulin sliding scale, diabetic diet, blood glucose q. before meals and at bedtime, Hospitalist will follow up Subjective Patient was feeling palpitation, come and goes, this morning Initially decreased and was not able to give oral medication for heart rate and blood pressure because HR was up to 120, blood pressure was insignificant borderline low at 90's After repeated, was able to give metoprolol Generally patient has no complaints Review of Systems Constitutional: negative weakness, or fatigue Respiratory: no cough, sputum, wheezing, or dyspnea on exertion Cardiac: No chest pain, No orthopnea, No PND, Abdomen: No pain, No nausea, No vomiting, No diarrhea, Musculoskeletal: No joint pain, No muscle pain, No swelling, No calf pain, No problem reported : No dysuria, No urinary frequency, Neurologic: No paralysis, No weakness, No numbness/tingling, No vertigo, No balance problems Psychiatric: No depression symptoms, No anhedonism, Heme: No abnormal bleeding/bruising, No clotting problems, Skin: No rash, No itch, No new/changing skin lesions, No color change, No bleeding Physical Exam 2 Vital Signs (Past 24 Hours): Last Vital Signs Temp 36.6 C 05/16/18 15:18 Pulse 117 H 05/16/18 15:18 Resp 16 05/16/18 15:18 BP 106/74 05/16/18 15:18 Pulse Ox 94 05/16/18 15:18 Physical Exam: General Appearance: WD/WN, no apparent distress, pleasant, morbid obesity, Eyes: normal inspection, PERRL, EOMI, sclerae normal ENT: normal ENT inspection, hearing grossly normal, pharynx normal Neck: supple, no adenopathy, thyroid normal, no JVD, no carotid bruits, trachea midline Respiratory/Chest: chest non-tender, normal breath sounds, no respiratory distress, no accessory muscle use, breath sounds, rales, wheezing Cardiovascular: irregular rate, rhythm, no JVD, no murmur Abdomen: normal bowel sounds, non tender, soft, no organomegaly, Extremities: No obvious edema, normal range of motion, non-tender, normal inspection, joint has no limited range of motion, capillary refill is normal, no cyanosis clubbing Neurologic/Psychiatric: 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, no motor/sensory deficits, alert, normal mood/affect, oriented x 3 Skin: normal color, warm/dry, no rash Lymphatic: no adenopathy Results & Data Laboratory Results Laboratory Results - last 24 hr 05/15/18 05/15/18 05/16/18 17:01 20:29 00:14 WBC RBC Hgb Hct MCV MCH MCHC RDW Std Deviation RDW Coeff of Gabriele Plt Count MPV Immature Gran % (Auto) Neut % (Auto) Lymph % (Auto) [place] % (Auto) Eos % (Auto) Baso % (Auto) Immature Gran # (Auto) Neut # (Auto) Lymph # (Auto) [place] # (Auto) Eos # (Auto) Baso # (Auto) PT INR Sodium Potassium Chloride Carbon Dioxide Anion Gap BUN Creatinine Est Cr Clr Drug Dosing Est GFR ( Amer) Est GFR (Non-Af Amer) BUN/Creatinine Ratio Glucose POC Glucose 129 H 172 H 156 H Calcium Phosphorus Magnesium 05/16/18 05/16/18 05/16/18 06:15 06:15 06:15 WBC 7.09 RBC 3.05 L Hgb 9.9 L Hct 29.7 L MCV 97.4 MCH 32.5 MCHC 33.3 RDW Std Deviation 47.6 H RDW Coeff of Gabriele 13.4 Plt Count 154 MPV 10.0 Immature Gran % (Auto) 0.3 Neut % (Auto) 65.7 Lymph % (Auto) 22.6 [place] % (Auto) 9.2 Eos % (Auto) 2.1 Baso % (Auto) 0.1 Immature Gran # (Auto) 0.02 Neut # (Auto) 4.66 Lymph # (Auto) 1.60 [place] # (Auto) 0.65 H Eos # (Auto) 0.15 Baso # (Auto) 0.01 PT 10.8 INR 1.1 Sodium 136 Potassium 3.7 Chloride 104 Carbon Dioxide 27 Anion Gap 5.0 BUN 14 Creatinine 0.61 Est Cr Clr Drug Dosing 101.5 Est GFR ( Amer) 112.6 Est GFR (Non-Af Amer) 97.2 BUN/Creatinine Ratio 23.4 H Glucose 116 H POC Glucose Calcium 7.7 L Phosphorus 2.0 L Magnesium 1.6 L 05/16/18 05/16/18 06:39 12:01 WBC RBC Hgb Hct MCV MCH MCHC RDW Std Deviation RDW Coeff of Gabriele Plt Count MPV Immature Gran % (Auto) Neut % (Auto) Lymph % (Auto) [place] % (Auto) Eos % (Auto) Baso % (Auto) Immature Gran # (Auto) Neut # (Auto) Lymph # (Auto) [place] # (Auto) Eos # (Auto) Baso # (Auto) PT INR Sodium Potassium Chloride Carbon Dioxide Anion Gap BUN Creatinine Est Cr Clr Drug Dosing Est GFR ( Amer) Est GFR (Non-Af Amer) BUN/Creatinine Ratio Glucose POC Glucose 125 H 123 H Calcium Phosphorus Magnesium
[2018-05-16] MEDS: ROPINIROLE HCL 1 MG TABLET PO SCH ×2 (15:53→22:08)
[2018-05-16 16:40] LABS: Iron 21 mcg/dl (35-150)
[2018-05-16 16:48] LABS: Folate (Folic Acid) 16.58 ng/ml (>5.38)
[2018-05-16] MEDS: AMITRIPTYLINE HCL 10 MG TAB PO SCH (22:06)
[2018-05-17] MEDS: ACETAMINOPHEN 1,000 MG/100 ML VIAL IV SCH ×2 (06:13→13:11)
[2018-05-17] MEDS: OXYCODONE HCL IR 5 MG TAB (IMMEDIATE RELEASE) PO PRN ×4 (06:44→16:11)
[2018-05-17 07:01] LABS: Basophils # (auto) 0.02 K/uL (0-0.2); Basophils % (auto) 0.2 %; Eosinophils # (auto) 0.24 K/uL (0-0.5); Eosinophils % (auto) 2.9 %; Hemoglobin 11.7 g/dL (12.0-16.0); Immature Granulocytes # (auto) 0.02 K/uL (0.00-0.02); Immature Granulocytes % (auto) 0.2 %; Lymphocytes # (auto) 1.82 K/uL (1.2-3.4); Mean Corpuscular Hgb Conc 33.4 g/dL (32-36); Mean Corpuscular Volume 98.3 fL (80-100); Mean Platelet Volume 9.7 fL (7.4-10.4); Monocytes # (auto) 0.71 K/uL (0.11-0.59); Monocytes % (auto) 8.6 %; Neutrophils # (auto) 5.46 K/uL (1.4-6.5); Neutrophils % (auto) 66.1 %; Platelet Count 208 K/uL (130-400); RDW Standard Deviation 46.7 fL (36.4-46.3); Red Blood Count 3.56 M/uL (4.2-5.4); White Blood Count 8.27 K/uL (4.8-10.8)
[2018-05-17 07:41] LABS: Calcium 8.4 mg/dl (8.5-10.1); Creatinine Clr Calc Pharmacy 108.6 ml/min; Est GFR (African American) 115.2; Est GFR (Non-African American) 99.4; Magnesium 1.6 mg/dl (1.8-2.4); Phosphorus 2.3 mg/dl (2.5-4.9); Potassium 3.9 mmol/L (3.5-5.1)
[2018-05-17] MEDS: LISINOPRIL 10 MG TAB PO SCH (09:00)
[2018-05-17] MEDS: METOPROLOL SUCC 50MG EXT REL TAB PO SCH (09:00)
[2018-05-17] MEDS: APIXABAN 5 MG TABLET PO SCH (09:01)
[2018-05-17] MEDS: DOCUSATE SODIUM 100 MG CAP PO SCH (09:01)
[2018-05-17] MEDS: FLECAINIDE ACETATE 100 MG TABLET PO SCH (09:01)
[2018-05-17] MEDS: MAGNESIUM OXIDE 400 MG TAB PO SCH (09:01)
[2018-05-17] MEDS: FLUTICASONE PROPIONATE NA SPR 16 GM BTL SCH (09:02)
[2018-05-17] MEDS: CALCIUM POLYCARBOPHIL 1 TAB PO SCH (09:02)
[2018-05-17] MEDS: METFORMIN HCL 500 MG TAB PO SCH (09:04)
--- NOTE | 2018-05-17 14:28 | Hospitalist Progress Note ---
Date of Service May 17, 2018 Assessment & Plan (1) Degenerative disc disease, cervical: (2) Chronic lumbar pain: (3) Obesity: (4) RLS (restless legs syndrome): (5) Atrial fibrillation: (6) Hyperlipidemia: (7) Hypertension: (8) Anxiety: (9) Depression: (10) Diabetes mellitus, type 2: (11) GERD (gastroesophageal reflux disease): 62-year-old white female with a significant past medical history of chronic lumbar pain, restless leg syndrome, A. fib, dyslipidemia hypertension, anxiety, depression type II diabetic GERD, was admitted to orthopedic service because of lower back pain. Low back pain S/P procedure, this will be management by the primary team, others such as pain control PT OT DVT prophylaxis and discharge plan will be per primary team AJorgito mantilla with rapid ventricular response during his hospitalization Resolved, has been up and walk, heart rate well controlled Advised continue current medication, no any medicine changes upon discharge, Call internal control manager if have any questions restless leg syndrome, dyslipidemia hypertension, anxiety, depression , GERD, stable will continue current medication, type II diabetic: Continue home medication plus insulin sliding scale, diabetic diet, blood glucose q. before meals and at bedtime. Hospitalist signout, call if any questions Subjective Doing okay, no palpitation no dizziness, heart rate better controlled, blood pressure doing fine No other complaint Generally patient has no complaints Review of Systems Constitutional: negative weakness, or fatigue Respiratory: no cough, sputum, wheezing, or dyspnea on exertion Cardiac: No chest pain, No orthopnea, No PND, Abdomen: No pain, No nausea, No vomiting, No diarrhea, Musculoskeletal: No joint pain, No muscle pain, No swelling, No calf pain, No problem reported : No dysuria, No urinary frequency, Neurologic: No paralysis, No weakness, No numbness/tingling, No vertigo, No balance problems Psychiatric: No depression symptoms, No anhedonism, Heme: No abnormal bleeding/bruising, No clotting problems, Skin: No rash, No itch, No new/changing skin lesions, No color change, No bleeding Physical Exam 2 Vital Signs (Past 24 Hours): Last Vital Signs Temp 37.1 C 05/17/18 08:00 Pulse 60 05/17/18 08:00 Resp 16 05/17/18 08:00 BP 110/74 05/17/18 08:00 Pulse Ox 97 05/17/18 11:49 Physical Exam: General Appearance: WD/WN, no apparent distress, pleasant, morbid obesity, Eyes: normal inspection, PERRL, EOMI, sclerae normal ENT: normal ENT inspection, hearing grossly normal, pharynx normal Neck: supple, no adenopathy, thyroid normal, no JVD, no carotid bruits, trachea midline Respiratory/Chest: chest non-tender, normal breath sounds, no respiratory distress, no accessory muscle use, breath sounds, rales, wheezing Cardiovascular: irregular rate, heart rate is 60-70s, rhythm, no JVD, no murmur Abdomen: normal bowel sounds, non tender, soft, no organomegaly, Extremities: No obvious edema, normal range of motion, non-tender, normal inspection, joint has no limited range of motion, capillary refill is normal, no cyanosis clubbing 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, no motor/sensory deficits, alert, normal mood/affect, oriented x 3 Skin: normal color, warm/dry, no rash Lymphatic: no adenopathy Results & Data Laboratory Results Laboratory Results - last 24 hr 05/14/18 05/16/18 05/16/18 06:06 15:56 15:56 WBC RBC Hgb Hct MCV MCH MCHC RDW Std Deviation RDW Coeff of Gabriele Plt Count MPV Immature Gran % (Auto) Neut % (Auto) Lymph % (Auto) [place] % (Auto) Eos % (Auto) Baso % (Auto) Immature Gran # (Auto) Neut # (Auto) Lymph # (Auto) [place] # (Auto) Eos # (Auto) Baso # (Auto) Sodium Potassium Chloride Carbon Dioxide Anion Gap BUN Creatinine Est Cr Clr Drug Dosing Est GFR ( Amer) Est GFR (Non-Af Amer) BUN/Creatinine Ratio Glucose POC Glucose Calcium Phosphorus Magnesium Iron 21 L TIBC 243 L Vitamin B12 461 Folate 16.58 Crossmatch See Detail 05/16/18 05/16/18 05/17/18 17:11 20:52 06:34 WBC RBC Hgb Hct MCV MCH MCHC RDW Std Deviation RDW Coeff of Gabriele Plt Count MPV Immature Gran % (Auto) Neut % (Auto) Lymph % (Auto) [place] % (Auto) Eos % (Auto) Baso % (Auto) Immature Gran # (Auto) Neut # (Auto) Lymph # (Auto) [place] # (Auto) Eos # (Auto) Baso # (Auto) Sodium 135 L Potassium 3.9 Chloride 102 Carbon Dioxide 28 Anion Gap 5.0 BUN 6 L D Creatinine 0.57 L Est Cr Clr Drug Dosing 108.6 Est GFR ( Amer) 115.2 Est GFR (Non-Af Amer) 99.4 BUN/Creatinine Ratio 11.0 Glucose 136 H POC Glucose 147 H 207 H Calcium 8.4 L Phosphorus 2.3 L Magnesium 1.6 L Iron TIBC Vitamin B12 Folate Crossmatch 05/17/18 05/17/18 05/17/18 06:34 08:10 12:15 WBC 8.27 RBC 3.56 L Hgb 11.7 L Hct 35.0 L MCV 98.3 MCH 32.9 MCHC 33.4 RDW Std Deviation 46.7 H RDW Coeff of Gabriele 13.0 Plt Count 208 MPV 9.7 Immature Gran % (Auto) 0.2 Neut % (Auto) 66.1 Lymph % (Auto) 22.0 [place] % (Auto) 8.6 Eos % (Auto) 2.9 Baso % (Auto) 0.2 Immature Gran # (Auto) 0.02 Neut # (Auto) 5.46 Lymph # (Auto) 1.82 [place] # (Auto) 0.71 H Eos # (Auto) 0.24 Baso # (Auto) 0.02 Sodium Potassium Chloride Carbon Dioxide Anion Gap BUN Creatinine Est Cr Clr Drug Dosing Est GFR ( Amer) Est GFR (Non-Af Amer) BUN/Creatinine Ratio Glucose POC Glucose 262 H 151 H Calcium Phosphorus Magnesium Iron TIBC Vitamin B12 Folate Crossmatch
== END 2018-05-17 16:30 | disposition home or self-care (01) | DRG 516 ==
LOC: ASU 05:45 → 3E 10:39